=== PATIENT | female | born 1965 | race Caucasian/White ===

== ENCOUNTER 2018-02-14 17:57 | Inpatient (IN) | payer OTHER ==
[~2018-02-14] VITALS: Ht 162.6 cm; Wt 80.9 kg
[2018-02-14 18:02] VITALS: Ht 162.6 cm; Wt 80.9 kg
[2018-02-14 18:31] LABS: RED CELL DISTRIBUTION WIDTH 14.5 % (11.5-14.5)
[2018-02-14 18:36] LABS: CALCIUM 10.6 mg/dL (8.5-10.1); CARBON DIOXIDE 25.2 mmol/L (21-32); CHLORIDE SERUM 94 mmol/L (98-107); CREATININE SERUM 0.9 mg/dL (0.6-1.0); GFR1 > 60 mL/min; GLUCOSE SERUM 238 mg/dL (74-106); POTASSIUM SERUM 3.7 mmol/L (3.5-5.1); SODIUM SERUM 134 mmol/L (136-145)
[2018-02-14 18:41] LABS: ALBUMIN 4.9 g/dL (3.4-5.0); ALKALINE PHOSPHATASE 151 U/L (46-116); ALT/SGPT 36 U/L (14-59); AST/SGOT 31 U/L (15-37); BILIRUBIN TOTAL 0.7 mg/dL (0.20-1.00); LIPASE 172 IU/L (73-393); TOTAL PROTEIN, SERUM 10.1 g/dL (6.4-8.2)
[2018-02-14 18:49] LABS: PLATELET COUNT 408 x10^3mcL (130-400)
[2018-02-14 18:56] LABS: BAND NEUTROPHIL 2 % (0-10); BASOPHIL 0 % (0-2); MONOCYTE 4 % (0-7); SEGMENTED NEUTROPHILS 83 % (37-75)
[2018-02-14 18:57] LABS: rbc morphology (normal/abnorm) ABNORMAL (NORMAL)
[2018-02-14] MEDS ORDERED: INVOKAMET1 TA1 PO (21:27)
[2018-02-14] MEDS ORDERED: VICTOZA 3-0.6 MG/0.1 SQ (21:29)
[2018-02-14 22:05] LABS: CHOLESTEROL/HDL RATIO 4.5; MAGNESIUM 1.8 mg/dL (1.8-2.4); PHOSPHOROUS 3.8 mg/dL (2.5-4.9)
[2018-02-14 22:13] LABS: T3 TOTAL 1.44 ng/mL
[2018-02-14 22:14] LABS: FREE T4 1.21 ng/dL (0.76-1.46); FREE THYROXINE INDEX 2.9 ug/dL (1.4-4.5)
[2018-02-14 22:27] VITALS: BP 104/56
[2018-02-14 23:11] LABS: microscopic required? NO
[2018-02-14 23:40] LABS: urine erythrocyte NEGATIVE (NEGATIVE)
[2018-02-14 23:50] LABS: AMPHETAMINE QUAL UR NONE DETECTED (See below)
[2018-02-15 05:17] VITALS: BP 99/56
[2018-02-15 06:23] LABS: BASOPHIL % 0.8 % (0-2); PLATELET COUNT 293 x10^3mcL (130-400); RED CELL DISTRIBUTION WIDTH 14.4 % (11.5-14.5)
[2018-02-15 06:38] LABS: CALCIUM 7.7 mg/dL (8.5-10.1); CARBON DIOXIDE 27.7 mmol/L (21-32); CHLORIDE SERUM 105 mmol/L (98-107); CREATININE SERUM 0.6 mg/dL (0.6-1.0); GFR1 > 60 mL/min; GLUCOSE SERUM 119 mg/dL (74-106); POTASSIUM SERUM 3.5 mmol/L (3.5-5.1); SODIUM SERUM 139 mmol/L (136-145)
[2018-02-15 09:59] VITALS: BP 99/51
[2018-02-15 17:48] VITALS: BP 107/57
[2018-02-15 20:38] VITALS: BP 94/53
[2018-02-16 06:30] VITALS: BP 102/60
[2018-02-16 07:13] LABS: CALCIUM 8.3 mg/dL (8.5-10.1); CARBON DIOXIDE 26.8 mmol/L (21-32); CHLORIDE SERUM 107 mmol/L (98-107); CREATININE SERUM 0.6 mg/dL (0.6-1.0); GFR1 > 60 mL/min; GLUCOSE SERUM 177 mg/dL (74-106); POTASSIUM SERUM 3.6 mmol/L (3.5-5.1); SODIUM SERUM 139 mmol/L (136-145)
[2018-02-16 07:39] LABS: BASOPHIL % 0.7 % (0-2); PLATELET COUNT 271 x10^3mcL (130-400); RED CELL DISTRIBUTION WIDTH 14.1 % (11.5-14.5)
[2018-02-16 09:20] VITALS: BP 107/59
[2018-02-16] MEDS ORDERED: OMEPRAZOLE40 M1 PO (13:39)
[2018-02-16 13:44] VITALS: BP 107/59
[2018-02-16] MEDS ORDERED: OSCD PO (13:47)
== END 2018-02-16 14:30 | disposition home or self-care (01) | DRG 872 ==
LOC: ED 17:57 → MU 21:29
PROVIDERS: Emergency Medicine; Family Medicine; Internal Medicine
DX: A41.9 Sepsis, unspecified organism (principal); K56.7 Ileus, unspecified; E87.1 Hypo-osmolality and hyponatremia; E11.65 Type 2 diabetes mellitus with hyperglycemia; E83.51 Hypocalcemia; E78.00 Pure hypercholesterolemia, unspecified; A08.4 Viral intestinal infection, unspecified; E78.5 Hyperlipidemia, unspecified; Z68.30 Body mass index [BMI] 30.0-30.9, adult; Z79.84 Long term (current) use of oral hypoglycemic drugs; Z98.51 Tubal ligation status; Z88.8 Allergy status to other drugs, medicaments and biological substances; Z83.3 Family history of diabetes mellitus; Z82.3 Family history of stroke; Z80.9 Family history of malignant neoplasm, unspecified; Z79.899 Other long term (current) drug therapy
CPT/HCPCS: 82962; 83880; 84439; 87046; 87046-59; J1885; J1956; J2270; J2405; J3490; J7030; Q0092